=== PATIENT | male | born 1985 | race Caucasian/White ===

== ENCOUNTER → 2016-08-28 | Outpatient (REF) ==
--- NOTE | 2016-08-28 13:32 | REP ---
AP LATERAL CERVICAL SPINE, THREE VIEWS: HISTORY: Degenerative disc disease. There is no acute fracture or subluxation. The intervertebral discs are normal in height. A small anterior osteophyte is present on C6. IMPRESSION: Degenerative change as described above. Signed by Douglas Mullen MD 08/28/2016 01:41 P
== END ==
LOC: M SMT 12:16
PROVIDERS: ATTEND Internal Medicine
DX: M19.90 Unspecified osteoarthritis, unspecified site (principal)